=== PATIENT | male | born 1940 | race Caucasian/White ===

== ENCOUNTER 2019-07-03 13:11 | Inpatient (IN) | payer MEDICARE, BC ==
[2019-07-03 15:09] LABS: Glucose,Whole Blood 422 mg/dL (75-99)
[2019-07-03] MEDS ORDERED: HYDROcodone/APAP 5-325MG 1 EACH TAB PO PRN (16:34)
[2019-07-03] MEDS ORDERED: MELATONIN 3 MG TABLET PO PRN (16:34)
[2019-07-03] MEDS ORDERED: NALOXONE 0.4 MG/ML 1 ML VIAL IV PRN (16:34)
[2019-07-03] MEDS ORDERED: ONDANSETRON 4 MG/2 ML VIAL IVP PRN (16:34)
[2019-07-03] MEDS ORDERED: ACETAMINOPHEN TAB 325 MG TAB PO PRN (16:34)
[2019-07-03] MEDS ORDERED: ALBUTEROL INHALER 60 PUFF/8 GM INHALER (BULK) INHALATION PRN (16:36)
[2019-07-03 16:57] LABS: Glucose,Whole Blood 402 mg/dL (75-99)
[2019-07-03 17:13] LABS: Basophils % (A) 0 %; Eosinophils # (A) 0.3 k/uL (0-0.7); Eosinophils % (A) 2 %; HCT 43.1 % (39.0-53.0); HGB 14.2 gm/dL (13.0-17.5); Lymphocytes # (A) 1.5 k/uL (1.0-4.8); Lymphocytes % (A) 11 %; MCH 31.8 pg (25.0-35.0); MCHC 32.9 g/dL (31.0-37.0); MCV 96.8 fL (80.0-100.0); Mean Platelet Volume 9.8; Monocytes # (A) 0.5 k/uL (0-1.0); Monocytes % (A) 4 %; Neutrophils # (A) 11.7 k/uL (1.3-7.7); Neutrophils % (A) 83 %; Platelet Count 150 k/uL (150-450); RBC 4.45 m/uL (4.30-5.90); RDW 12.3 % (11.5-15.5); WBC 14.1 k/uL (3.8-10.6)
[2019-07-03] MEDS: SODIUM CHLORIDE 0.9% 1,000 ML IV SCH (17:20)
[2019-07-03] MEDS: INSULIN ASPART (NovoLOG) 100 UNIT/ML VIAL SQ SCH ×2 (17:20→20:53)
[2019-07-03 17:25] LABS: Albumin 3.3 g/dL (3.5-5.0); Calcium 9.2 mg/dL (8.4-10.2); Potassium 5.4 mmol/L (3.5-5.1); Total Bilirubin 0.7 mg/dL (0.2-1.3); Total Protein 6.1 g/dL (6.3-8.2)
[2019-07-03] MEDS ORDERED: ALBUTEROL HFA INHALER INHALATION PRN (18:27)
[2019-07-03 20:06] LABS: Glucose,Whole Blood 428 mg/dL (75-99)
[2019-07-03] MEDS: ATENOLOL 50 MG TAB PO SCH (20:52)
[2019-07-03] MEDS: TIMOLOL 0.5% OPHTH DROPS 5 ML BTL BOTH EYES SCH (20:53)
[2019-07-03] MEDS: LATANOPROST 0.005% OPHTH DROPS 2.5 ML BTL BOTH EYES SCH (20:53)
[2019-07-03] MEDS: VIT A,C & E-LUTEIN-MINERALS 1 EACH TAB PO SCH (20:53)
--- NOTE | 2019-07-03 23:01 | P.EN ---
i Was notified by RN to evaluate patient after falling in the bathroom and hitting the back of his head with the sink denies any focal neuro deficits no visible cuts or bruising or swelling on the back of his head no headache no nausea no vomiting denies any LOC denies any dizziness patient not on full anticoagulation plan fall precautions neuro checks
[2019-07-04] MEDS: HEPARIN SODIUM,PORCINE 5,000 UNIT/ML 1 ML VIAL SQ SCH ×4 (00:50→23:54)
[2019-07-04 02:34] LABS: Prolactin 2.9 ng/mL (2.1-17.7)
[2019-07-04 06:49] LABS: Glucose,Whole Blood 256 mg/dL (75-99)
[2019-07-04] MEDS: SODIUM CHLORIDE 0.9% 1,000 ML IV SCH ×4 (07:08→16:14)
[2019-07-04] MEDS: TIMOLOL 0.5% OPHTH DROPS 5 ML BTL BOTH EYES SCH ×2 (07:22→21:46)
[2019-07-04] MEDS: INSULIN ASPART (NovoLOG) 100 UNIT/ML VIAL SQ SCH ×4 (07:22→21:48)
--- NOTE | 2019-07-04 08:19 | XR ---
EXAMINATION TYPE: XR chest 1V portable DATE OF EXAM: 07/04/2019 COMPARISON: Outside CT thorax dated 07/02/2019 HISTORY: Pneumonia. TECHNIQUE: Single frontal view of the chest is obtained. FINDINGS: There is no focal air space opacity, pleural effusion, or pneumothorax seen. The subcenti meter right-sided pulmonary nodule seen on the prior CT are not well seen on x-ray and should be foll owed with CT in 12 months. The cardiac silhouette size is within normal limits. The osseous structu res are intact. IMPRESSION: No acute cardiopulmonary process on chest x-ray. The known pulmonary nodules are not well-defined on chest x-ray given their small size.
[2019-07-04] MEDS ORDERED: AZITHROMYCIN 500 MG in SODIUM CHLORIDE 0.9% 250 ML IVPB SCH (09:00)
[2019-07-04 09:19] LABS: Albumin 2.6 g/dL (3.5-5.0); Calcium 8.2 mg/dL (8.4-10.2); Total Bilirubin 0.4 mg/dL (0.2-1.3); Total Protein 5.1 g/dL (6.3-8.2)
[2019-07-04 09:20] LABS: Basophils % (A) 0 %; Eosinophils # (A) 0.4 k/uL (0-0.7); Eosinophils % (A) 3 %; HCT 39.6 % (39.0-53.0); HGB 12.7 gm/dL (13.0-17.5); Lymphocytes # (A) 1.9 k/uL (1.0-4.8); Lymphocytes % (A) 16 %; MCH 31.3 pg (25.0-35.0); MCHC 31.9 g/dL (31.0-37.0); MCV 98.1 fL (80.0-100.0); Mean Platelet Volume 9.4; Monocytes # (A) 0.4 k/uL (0-1.0); Monocytes % (A) 4 %; Neutrophils # (A) 9.4 k/uL (1.3-7.7); Neutrophils % (A) 77 %; Platelet Count 119 k/uL (150-450); RBC 4.04 m/uL (4.30-5.90); RDW 12.5 % (11.5-15.5); WBC 12.3 k/uL (3.8-10.6)
[2019-07-04 11:16] LABS: Glucose,Whole Blood 322 mg/dL (75-99)
[2019-07-04 15:27] VITALS: BMI 26.9
--- NOTE | 2019-07-04 15:36 | P.HPIM ---
History of Present Illness H&P Date: 07/03/19 Chief Complaint: inability to swallow Patient is a 78-year-old male with a past medical history of obese mellitus type II, hypertension, and dyslipidemia who initially presented to [facility] emergency department secondary to inability to swallow. He has been sick for approximately 3 weeks with a course of antibiotics and steroids due to severe bronchitis or pneumonia. This was given by his PCP. In the emergency department at [place] [address] he underwent extensive evaluation. His initial laboratory analysis showed a white blood cell count of 15.3, hemoglobin 12.6, platelets 141, lymphocyte 1.61, his glucometer read greater than 600 and blood draw showed glucose of 650. He was found to be significantly dehydrated with a BUN of 106, creatinine 2.76, sodium 138, potassium 3.9, chloride 106, carbon dioxide 20, anion gap 12, and calcium 8.1. He is on have an elevated lactic acid at 2.4, troponin negative. Influenza A and B were negative. He cad a COVID 19 swab. He underwent CTA of the chest He received a dose of doxycycline, Rocephin, and IV fluids. Pateint seen and examined at bedside. He reports that he has been sick for approximately 3 weeks. Initially he had a significant cough that was productive of sputum as well as postnasal drip and sinus congestion. He was advised primary care physician 3 times over the last 3 weeks. He received a course of steroids and antibiotics. Today he decided to present to the emergency dep artment if he stated he could not swallow due to his severe coughing. He denies any significant fevers at home. He does report recent thirst and increased urination. He also reports a 30 pound weight loss. He reports significant fatigue, muscle aches, and overall not feeling well. He reports that his blood sugars have been running extremely high. His blood sugars typically run 140s to 180s and his last hemoglobin A1c was near 7. He was recently started on Invega, by his primary care physician and had not benign blood sugar medications prior. He reports no other change in his medications. He denies any significant nausea, vomiting, or diarrhea. He reports lightheadedness and dizziness worse on standing. He has had a very poor appetite and reports loss of taste and smell that have not yet returned. Review of Systems Pertinent positives and negatives as discussed in HPI, a complete review of systems was performed and all other systems are negative. Past Medical History Past Medical History: Diabetes Mellitus, Hyperlipidemia, Hypertension History of Any Multi-Drug Resistant Organisms: None Reported Past Surgical History: Back Surgery Past Anesthesia/Blood Transfusion Reactions: No Reported Reaction Smoking Status: Former smoker Past Alcohol Use History: Daily Past Drug Use History: None Reported Additional History: Lives at home with no assistive devices - Past Family History Father Family Medical History: Congestive Heart Failure (CHF) Medications and Allergies Allergies Allergy/AdvReac Type Severity Reaction Status Date / Time No Known Allergies Allergy Verified 07/03/19 16:14 Physical Exam Osteopathic Statement: *. No significant issues noted on an osteopathic structural exam other than those noted in the History and Physical/Consult. Vitals: Vital Signs Temp Pulse Resp BP Pulse Ox 07/03/19 15:53 98.0 F 67 22 170/65 95 07/03/19 15:41 95 Intake and Output 07/03/19 07/03/19 07/03/19 06:59 14:59 22:59 Other: Weight 73.482 kg General: Ill appearing, no distress, appears at stated age, normal weight Derm: no unusual rashes/lesions no unusual ecchymoses, warm, dry Head: atraumatic, normocephalic, symmetric Eyes: EOMI, no lid lag, anicteric sclera, pupils equal round reactive to light ENT: Nose and ears atraumatic, no thrush, no pharyngeal erythema Neck: No thyromegaly, no cervical lymphadenopathy, trachea midline, supple Mouth: no lip lesion, gives membranes dry Cardiovascular: S1S2 reg, no murmur, positive posterior tibial pulse bilateral, no edema, capillary refill less than 2 seconds Lungs: Decreased breath sounds bilateral, no rhonchi, no rales , no accessory muscle use Abdominal: soft, nontender to palpation, no guarding, no appreciable organomegaly, normal bowel sounds Ext: no gross muscle atrophy, muscle strength 5 out of 5 in all 4 extremities grossly, no contractures, Neuro: CN II-XI grossly intact, light touch intact all 4 extremities, finger to nose within normal limits, Psych: Alert, oriented, appropriate affect Results Labs: Abnormal Lab Results - Last 24 Hours (Table) 07/03/19 Range/Units 15:07 POC Glucose (mg/dL) 422 H (75-99) mg/dL Comments: EKG is reviewed by myself reveals normal sinus rhythm at a rate of 63 with 1 PVC, QTC 425, no significant ST-T wave changes Chest x-ray: report reviewed Thrombosis Risk Factor Assmnt - DVT/VTE Prophylaxis DVT/VTE Prophylaxis: Pharmacologic Prophylaxis ordered - Choose All That Apply Each Risk Factor Represents 3 Points: Age 75 years or older Thrombosis Risk Factor Assessment Total Risk Factor Score: 3 Thrombosis Risk Factor Assessment Level: Moderate Risk Assessment and Plan Assessment: Bilateral pneumonia, community-acquired, failed outpatient treatment with sepsis -Low suspicion for Covid 19 with his elevated white blood cell count was appears more bacterial. Will check pro-calcitonin, LDH, CK. Covid 19 pending. Influenza nasal swab negative. -Follow chest x-ray until clear -Zithromax, Rocephin -Sputum culture, blood cultures pending - Recheck of lactic acid -Pulmonary hygiene -Albuterol inhaler Acute kidney injury -Avoid nephrotoxic agents -IV fluids -Repeat basic metabolic profile in a.m. -Monitor urine output Diabetes mellitus type 2 with significant hyperglycemia -Stat recheck a basic metabolic profile -Sliding scale insulin, check hemoglobin A1c -Follow blood sugars closely -Have been downtrending -Hold invokana Inabiltiy to swallow - swallow eval in AM Lactic acidosis -IV fluids -Follow until cleared HTN, controlled - hypotensive at [place] - Home atelolol - follow BP HLD - Statin The patient is admitted with an anticipated greater than 2 midnight stay for evaluation of Pneumonia with sepsis. Surrogate decision-maker: CODE STATUS: Ok with elective intubation if it is for short-term, does not want CPR, shock DVT prophylaxis: Heparin Discussed with: Patient, nursing, ED attemding from [facility] Anticipated discharge date: 3-[address]: home A total of 65 minutes was spent on the care of this complex patient more than 50% of the time was spent in counseling and care coordination.
--- NOTE | 2019-07-04 15:59 | P.PN ---
Subjective Progress Note Date: 07/04/19 Principal diagnosis: shortness of breath Patient is a 78-year-old male with a past medical history of obese mellitus type II, hypertension, and dyslipidemia who initially presented to [facility] emergency department secondary to inability to swallow. He has been sick for approximately 3 weeks with a course of antibiotics and steroids due to severe bronchitis or pneumonia. This was given by his PCP. In the emergency department at [place] he underwent extensive evaluation. His initial laboratory analysis showed a white blood cell count of 15.3, hemoglobin 12.6, platelets 141, lymphocyte 1.61, his glucometer reading was greater than 600 and blood draw showed glucose of 650. He was found to be significantly dehydrated with a BUN of 106, creatinine 2.76, sodium 138, potassium 3.9, chloride 106, carbon dioxide 20, anion gap 12, and calcium 8.1. He was found to have an elevated lactic acid at 2.4, troponin negative. Influenza A and B were neg ative. He had a COVID 19 swab. He underwent CTA of the chest. He received a dose of doxycycline, Rocephin, and IV fluids. By the morning after admission his glucose had greatly improved and his white blood cell count was continuing to improve. Renal function had also significantly improved. Patient seen and examined at bedside. He is feeling much better than yesterday, less body aches, his polydipsia is better, still having frequent urination. No nausea or vomiting. Still with low appetite. Overall feeling better. Cough is better today. Having more runny nose and stuffy nose. Objective - Vital Signs Vital signs: Vital Signs Temp 97.8 F 07/04/19 11:00 Pulse 84 07/04/19 11:00 Resp 18 07/04/19 11:00 BP 144/81 07/04/19 11:00 Pulse Ox 98 07/04/19 11:00 Intake & Output 07/03/19 07/04/19 07/04/19 18:59 06:59 18:59 Intake Total 1800 Output Total 200 250 Balance -200 1550 Weight 73.482 kg 73.482 kg Intake: Intake, IV Titration 1350 Amount Azithromycin 500 mg In 250 Sodium Chloride 0.9% 250 ml @ 250 mls/hr IVPB DAILY [facility] Rx#:[id number] Sodium Chloride 0.9% 1, 1050 000 ml @ 150 mls/hr IV . [id number] [facility] Rx#:[id number] cefTRIAXone 2 gm In 50 Sodium Chloride 0.9% 50 ml @ 100 mls/hr IVPB Q24HR [facility] Rx#:[id number] Oral 450 Output: Urine 200 250 Other: Voiding Method Urinal # Voids 1 1 - Exam General: [non toxic], [no distress], [appears at stated age] Derm: [warm], [dry] Head: [atraumatic], [normocephalic], [symmetric] Eyes: [EOMI], [no lid lag], [anicteric sclera] Mouth: [no lip lesion], [mucus membranes moist] Cardiovascular: [S1S2 reg], [no murmur], [positive posterior tibial pulse bilateral], Lungs: [CTA bilateral], [no rhonchi, no rales] , [no accessory muscle use] Abdominal: [soft], [ nontender to palpation], [no guarding], [no appreciable organomegaly] Ext: [no gross muscle atrophy], [no edema], [no contractures] Neuro: [ CN II-XI grossly intact], [no focal neuro deficits] Psych: [Alert], [oriented], [appropriate affect] - Labs CBC & Chem 7: 07/04/19 08:27 07/04/19 08:27 Labs: Abnormal Lab Results - Last 24 Hours (Table) 07/03/19 07/03/19 07/03/19 Range/Units 16:32 16:32 16:55 WBC 14.1 H (3.8-10.6) k/uL RBC (4.30-5.90) m/uL Hgb (13.0-17.5) gm/dL Plt Count (150-450) k/uL Neutrophils # 11.7 H (1.3-7.7) k/uL Potassium 5.4 H (3.5-5.1) mmol/L Chloride (98-107) mmol/L Carbon Dioxide (22-30) mmol/L BUN 88 H (9-20) mg/dL Creatinine 1.56 H (0.66-1.25) mg/dL Glucose 399 H (74-99) mg/dL POC Glucose (mg/dL) 402 H (75-99) mg/dL Calcium (8.4-10.2) mg/dL Creatine Kinase (55-170) U/L Total Protein 6.1 L (6.3-8.2) g/dL Albumin 3.3 L (3.5-5.0) g/dL 07/03/19 07/04/19 07/04/19 Range/Units 20:04 06:48 08:27 WBC 12.3 H (3.8-10.6) k/uL RBC 4.04 L (4.30-5.90) m/uL Hgb 12.7 L (13.0-17.5) gm/dL Plt Count 119 L (150-450) k/uL Neutrophils # 9.4 H (1.3-7.7) k/uL Potassium (3.5-5.1) mmol/L Chloride (98-107) mmol/L Carbon Dioxide (22-30) mmol/L BUN (9-20) mg/dL Creatinine (0.66-1.25) mg/dL Glucose (74-99) mg/dL POC Glucose (mg/dL) 428 H 256 H (75-99) mg/dL Calcium (8.4-10.2) mg/dL Creatine Kinase (55-170) U/L Total Protein (6.3-8.2) g/dL Albumin (3.5-5.0) g/dL 07/04/19 07/04/19 Range/Units 08:27 11:15 WBC (3.8-10.6) k/uL RBC (4.30-5.90) m/uL Hgb (13.0-17.5) gm/dL Plt Count (150-450) k/uL Neutrophils # (1.3-7.7) k/uL Potassium (3.5-5.1) mmol/L Chloride 110 H (98-107) mmol/L Carbon Dioxide 20 L (22-30) mmol/L BUN 61 H (9-20) mg/dL Creatinine 1.35 H (0.66-1.25) mg/dL Glucose 354 H (74-99) mg/dL POC Glucose (mg/dL) 322 H (75-99) mg/dL Calcium 8.2 L (8.4-10.2) mg/dL Creatine Kinase 34 L (55-170) U/L Total Protein 5.1 L (6.3-8.2) g/dL Albumin 2.6 L (3.5-5.0) g/dL Assessment and Plan Assessment: Bronchitis and sinusitis failed outpatient treatment with sepsis -Influenza A and B- -LDH normal, CK low, AST/ALT normal, no lymphopenia -Follow chest x-ray until clear -Zithromax, Rocephin -Sputum culture not collected, blood cultures pending - Recheck of lactic acid normal -Pulmonary hygiene -Albuterol inhaler Acute kidney injury -Avoid nephrotoxic agents -IV fluids decreased -Repeat basic metabolic profile in a.m. -Monitor urine output - lisinopril and HCTZ on hold Diabetes mellitus type 2 with significant hyperglycemia, improving -Sliding scale insulin, - check hemoglobin A1c pending -blood sugars closely -Hold invokana Thrombocytopenia - reactive - follow CBC Inabiltiy to swallow - resolved and clear buy speech HTN, controlled - hypotensive at [place] - Home atelolol - follow BP HLD - Statin Small pulm nodules - 12 month follow-up Lactic acidosis, resolved Pneumonia ruled out with negative chest x-ray DVT prophylaxis: Heparin Discussed with: Patient, nursing, ED Anticipated discharge date: 2-[address]: home A total of 25 minutes was spent on the care of this complex patient more than 50% of the time was spent in counseling and care coordination.
[2019-07-04 16:32] LABS: Glucose,Whole Blood 283 mg/dL (75-99)
[2019-07-04 19:42] LABS: Hemoglobin A1C 11.7 % (4.0-6.0)
[2019-07-04 20:57] LABS: Glucose,Whole Blood 457 mg/dL (75-99)
[2019-07-04] MEDS: ATENOLOL 50 MG TAB PO SCH (21:46)
[2019-07-04] MEDS: VIT A,C & E-LUTEIN-MINERALS 1 EACH TAB PO SCH (21:46)
[2019-07-04] MEDS: LATANOPROST 0.005% OPHTH DROPS 2.5 ML BTL BOTH EYES SCH (21:47)
[2019-07-04 22:15] LABS: Appearance,Urine Clear (Clear); Bilirubin,Urine Negative (Negative); Blood,Urine Negative (Negative); Color,Urine Light Yellow; Glucose,Urine (UA) 4+ (Negative); Ketones,Urine Negative (Negative); Leukocyte Esterase,Urine Negative (Negative); Nitrite,Urine Negative (Negative); Protein,Urine Negative (Negative); Specific Gravity,Urine 1.024 (1.001-1.035); Urobilinogen,Urine <2.0 mg/dL (<2.0)
[2019-07-05] MEDS: SODIUM CHLORIDE 0.9% 1,000 ML IV SCH (06:03)
[2019-07-05 06:52] LABS: Glucose,Whole Blood 191 mg/dL (75-99)
--- NOTE | 2019-07-05 07:29 | XR ---
EXAMINATION TYPE: XR chest 1V portable DATE OF EXAM: 07/05/2019 HISTORY: Shortness of breath. COMPARISON: July 04, 2019 TECHNIQUE: Single view of the chest is submitted. FINDINGS: Demonstrated are scattered senescent parenchymal change. There is no evidence for focal infiltrate. The heart is stable. Hilar and mediastinal structures are within normal limits. Degenerative changes are seen of the dorsal spine. IMPRESSION: 1. Chronic changes without evidence for acute pulmonary disease.
[2019-07-05] MEDS: INSULIN ASPART (NovoLOG) 100 UNIT/ML VIAL SQ SCH ×4 (07:37→20:30)
[2019-07-05] MEDS: HEPARIN SODIUM,PORCINE 5,000 UNIT/ML 1 ML VIAL SQ SCH ×2 (07:37→16:23)
[2019-07-05] MEDS: TIMOLOL 0.5% OPHTH DROPS 5 ML BTL BOTH EYES SCH ×2 (07:40→20:19)
[2019-07-05 08:38] LABS: Basophils % (A) 0 %; Eosinophils # (A) 0.4 k/uL (0-0.7); Eosinophils % (A) 3 %; HCT 40.9 % (39.0-53.0); HGB 13.3 gm/dL (13.0-17.5); Lymphocytes % (A) 18 %; MCH 31.6 pg (25.0-35.0); MCHC 32.6 g/dL (31.0-37.0); MCV 96.9 fL (80.0-100.0); Mean Platelet Volume 9.7; Monocytes # (A) 0.5 k/uL (0-1.0); Monocytes % (A) 4 %; Neutrophils # (A) 8.3 k/uL (1.3-7.7); Neutrophils % (A) 73 %; Platelet Count 112 k/uL (150-450); RBC 4.22 m/uL (4.30-5.90); RDW 12.4 % (11.5-15.5); WBC 11.4 k/uL (3.8-10.6)
[2019-07-05 08:50] LABS: Albumin 2.7 g/dL (3.5-5.0); Calcium 8.3 mg/dL (8.4-10.2); Potassium 4.6 mmol/L (3.5-5.1); Total Bilirubin 0.6 mg/dL (0.2-1.3); Total Protein 5.1 g/dL (6.3-8.2)
[2019-07-05] MEDS ORDERED: AZITHROMYCIN 500 MG TAB PO SCH (09:00)
[2019-07-05 11:35] LABS: Glucose,Whole Blood 345 mg/dL (75-99)
[2019-07-05 17:16] LABS: Glucose,Whole Blood 198 mg/dL (75-99)
[2019-07-05 20:03] LABS: Glucose,Whole Blood 402 mg/dL (75-99)
[2019-07-05] MEDS: INSULIN DETEMIR (LEVEMIR) 100 UNIT/ML SYR SQ SCH (20:14)
[2019-07-05] MEDS: ATENOLOL 50 MG TAB PO SCH (20:15)
--- NOTE | 2019-07-05 20:18 | P.PN ---
Subjective Progress Note Date: 07/05/19 Principal diagnosis: shortness of breath Patient is a 78-year-old male with a past medical history of obese mellitus type II, hypertension, and dyslipidemia who initially presented to [facility] emergency department secondary to inability to swallow. He has been sick for approximately 3 weeks with a course of antibiotics and steroids due to severe bronchitis or pneumonia. This was given by his PCP. In the emergency department at [place] he underwent extensive evaluation. His initial laboratory analysis showed a white blood cell count of 15.3, hemoglobin 12.6, platelets 141, lymphocyte 1.61, his glucometer reading was greater than 600 and blood draw showed glucose of 650. He was found to be significantly dehydrated with a BUN of 106, creatinine 2.76, sodium 138, potassium 3.9, chloride 106, carbon dioxide 20, anion gap 12, and calcium 8.1. He was found to have an elevated lactic acid at 2.4, troponin negative. Influenza A and B were neg ative. He had a COVID 19 swab. He underwent CTA of the chest. He received a dose of doxycycline, Rocephin, and IV fluids. By the morning after admission his glucose had greatly improved and his white blood cell count was continuing to improve. Renal function had also significantly improved. Ultimately his Covid 19 came back as negative. His A1c came back at 11.4. Repeat chest x-ray showed no acute process but scant pulmonary nodules with recommendations for follow-up in 12 months. Patient seen and examined at bedside. He is feeling much improved. Shortness of breath is getting better, cough is getting better. Still having nasal congestion. No chest pain. No n/v/diarrhea. Objective - Vital Signs Vital signs: Vital Signs Temp 98.1 F 07/05/19 16:28 Pulse 58 L 07/05/19 16:28 Resp 16 07/05/19 16:28 BP 134/64 07/05/19 16:28 Pulse Ox 97 07/05/19 16:28 Intake & Output 07/05/19 07/05/19 07/06/19 06:59 18:59 06:59 Intake Total 50 476 Output Total 200 Balance -150 476 Weight 73.482 kg Intake: Oral 50 476 Output: Urine 200 Other: Voiding Method Urinal # Voids 1 - Exam General: non toxic, no distress, appears at stated age Derm: warm, dry Head: atraumatic, normocephalic, symmetric Eyes: EOMI, no lid lag, anicteric sclera Mouth: no lip lesion, mucus membranes moist Cardiovascular: S1S2 reg, no murmur, positive posterior tibial pulse bilateral, Lungs: decreased be bilateral, no rhonchi, no rales , no accessory muscle use Abdominal: soft, nontender to palpation, no guarding, no appreciable organomegaly Ext: no gross muscle atrophy, no edema, no contractures Neuro: CN II-XI grossly intact, no focal neuro deficits Psych: Alert, oriented, appropriate affect - Labs CBC & Chem 7: 07/05/19 07:48 07/05/19 07:48 Labs: Abnormal Lab Results - Last 24 Hours (Table) 07/04/19 07/04/19 07/05/19 Range/Units 16:53 20:54 06:50 WBC (3.8-10.6) k/uL RBC (4.30-5.90) m/uL Plt Count (150-450) k/uL Neutrophils # (1.3-7.7) k/uL Chloride (98-107) mmol/L BUN (9-20) mg/dL Glucose (74-99) mg/dL POC Glucose (mg/dL) 457 H 191 H (75-99) mg/dL Calcium (8.4-10.2) mg/dL Lactate Dehydrogenase (313-618) U/L Creatine Kinase (55-170) U/L Total Protein (6.3-8.2) g/dL Albumin (3.5-5.0) g/dL Procalcitonin (0.02-0.09) ng/mL Urine Glucose (UA) 4+ H (Negative) 07/05/19 07/05/19 07/05/19 Range/Units 07:48 07:48 07:48 WBC 11.4 H (3.8-10.6) k/uL RBC 4.22 L (4.30-5.90) m/uL Plt Count 112 L (150-450) k/uL Neutrophils # 8.3 H (1.3-7.7) k/uL Chloride 111 H (98-107) mmol/L BUN 40 H (9-20) mg/dL Glucose 209 H (74-99) mg/dL POC Glucose (mg/dL) (75-99) mg/dL Calcium 8.3 L (8.4-10.2) mg/dL Lactate Dehydrogenase 626 H (313-618) U/L Creatine Kinase 29 L (55-170) U/L Total Protein 5.1 L (6.3-8.2) g/dL Albumin 2.7 L (3.5-5.0) g/dL Procalcitonin 0.10 H (0.02-0.09) ng/mL Urine Glucose (UA) (Negative) 07/05/19 07/05/19 07/05/19 Range/Units 11:34 17:14 19:47 WBC (3.8-10.6) k/uL RBC (4.30-5.90) m/uL Plt Count (150-450) k/uL Neutrophils # (1.3-7.7) k/uL Chloride (98-107) mmol/L BUN (9-20) mg/dL Glucose (74-99) mg/dL POC Glucose (mg/dL) 345 H 198 H 402 H (75-99) mg/dL Calcium (8.4-10.2) mg/dL Lactate Dehydrogenase (313-618) U/L Creatine Kinase (55-170) U/L Total Protein (6.3-8.2) g/dL Albumin (3.5-5.0) g/dL Procalcitonin (0.02-0.09) ng/mL Urine Glucose (UA) (Negative) Assessment and Plan Assessment: Bronchitis and sinusitis failed outpatient treatment with sepsis -Influenza A and B, COVID 19 negative -LDH normal, CK low, AST/ALT normal, no lymphopenia -Zithromax, Rocephin changed to augmentin -Sputum culture not collected, blood cultures pending - Recheck of lactic acid normal -Pulmonary hygiene -Albuterol inhaler Pulmonary nodules - repeat CT chest with PCP Diabetes mellitus type 2 with significant hyperglycemia, improving -Sliding scale insulin, start levemir, plan on d/c with long acting and metformin. - hemoglobin A1c 11.7 -blood sugars closely -Hold invokana Thrombocytopenia - reactive - follow CBC HTN, controlled - resume zestoretic - Home atelolol - follow BP HLD - Statin Small pulm nodules - 12 month follow-up Lactic acidosis, resolved Pneumonia ruled out with negative chest x-ray Acute kidney injury, resolved Inabiltiy to swallow, resolved DVT prophylaxis: Heparin Discussed with: Patient, nursing, Anticipated discharge date: 1-[address]: home A total of 25 minutes was spent on the care of this complex patient more than 50% of the time was spent in counseling and care coordination.
[2019-07-05] MEDS: LATANOPROST 0.005% OPHTH DROPS 2.5 ML BTL BOTH EYES SCH (20:19)
[2019-07-05] MEDS: AMOXIC-POT CLAV 875-125MG 1 EACH TAB PO SCH (21:36)
[2019-07-05] MEDS: VIT A,C & E-LUTEIN-MINERALS 1 EACH TAB PO SCH (21:38)
[2019-07-05 22:47] LABS: Glucose,Whole Blood 269 mg/dL (75-99)
[2019-07-06] MEDS: HEPARIN SODIUM,PORCINE 5,000 UNIT/ML 1 ML VIAL SQ SCH ×4 (00:09→20:29)
[2019-07-06 02:15] LABS: Glucose,Whole Blood 131 mg/dL (75-99)
[2019-07-06 07:11] LABS: Glucose,Whole Blood 121 mg/dL (75-99)
[2019-07-06] MEDS: INSULIN ASPART (NovoLOG) 100 UNIT/ML VIAL SQ SCH ×5 (07:14→20:23)
[2019-07-06 07:45] LABS: Calcium 8.1 mg/dL (8.4-10.2); Potassium 4.8 mmol/L (3.5-5.1)
[2019-07-06 08:08] LABS: HCT 37.6 % (39.0-53.0); HGB 12.4 gm/dL (13.0-17.5); MCH 31.9 pg (25.0-35.0); MCV 96.7 fL (80.0-100.0); RBC 3.89 m/uL (4.30-5.90); RDW 12.3 % (11.5-15.5); WBC 9.1 k/uL (3.8-10.6)
[2019-07-06] MEDS: LISINOPRIL-HCTZ 20-12.5 MG 1 EACH TAB PO SCH (08:33)
[2019-07-06] MEDS: AMOXIC-POT CLAV 875-125MG 1 EACH TAB PO SCH ×2 (08:33→20:25)
[2019-07-06] MEDS: metFORMIN 500 MG TAB PO SCH ×2 (08:33→17:43)
[2019-07-06] MEDS: TIMOLOL 0.5% OPHTH DROPS 5 ML BTL BOTH EYES SCH ×2 (08:34→20:27)
[2019-07-06 11:33] LABS: Glucose,Whole Blood 397 mg/dL (75-99)
[2019-07-06 11:42] LABS: Platelet Count 98 k/uL (150-450)
--- NOTE | 2019-07-06 14:25 | P.PN ---
Subjective Progress Note Date: 07/06/19 (delayed charting seen at 0830) Principal diagnosis: shortness of breath Patient is a 78-year-old male with a past medical history of obese mellitus type II, hypertension, and dyslipidemia who initially presented to [facility] emergency department secondary to inability to swallow. He has been sick for approximately 3 weeks with a course of antibiotics and steroids due to severe bronchitis or pneumonia. This was given by his PCP. In the emergency department at [place] he underwent extensive evaluation. His initial laboratory analysis showed a white blood cell count of 15.3, hemoglobin 12.6, platelets 141, lymphocyte 1.61, his glucometer reading was greater than 600 and blood draw showed glucose of 650. He was found to be significantly dehydrated with a BUN of 106, creatinine 2.76, sodium 138, potassium 3.9, chloride 106, carbon dioxide 20, anion gap 12, and calcium 8.1. He was found to have an elevated lactic acid at 2.4, troponin negative. Influenza A and B were negative. He had a COVID 19 swab. He underwent CTA of the chest. He received a dose of doxycycline, Rocephin, and IV fluids. By the morning after admission his glucose had greatly improved and his white blood cell count was continuing to improve. Renal function had also significantly improved. Ultimately his Covid 19 came back as negative. His A1c came back at 11.4. Repeat chest x-ray showed no acute process but scant pulmonary nodules with recommendations for follow-up in 12 months. His sugars were well controlled with a small amount of levemir. Patient seen and examined at bedside. Feeling weel, cough resolved, swallowing back to baseline, nervous about going home with insulin but feels that he can do this. No chest pain, no nuasea, no vomiting, no diarrhea. Objective - Vital Signs Vital signs: Vital Signs Temp 97.8 F 07/06/19 13:44 Pulse 67 07/06/19 13:44 Resp 16 07/06/19 13:44 BP 131/71 07/06/19 13:44 Pulse Ox 97 07/06/19 13:44 Intake & Output 07/05/19 07/06/19 07/06/19 18:59 06:59 18:59 Intake Total 476 700 540 Output Total 600 Balance 476 700 -60 Weight 73.482 kg Intake: Oral 476 700 540 Output: Urine 600 Other: Voiding Method Urinal # Voids 1 2 # Bowel Movements 1 - Exam General: non toxic, no distress, appears at stated age Derm: warm, dry Head: atraumatic, normocephalic, symmetric Eyes: EOMI, no lid lag, anicteric sclera Mouth: no lip lesion, mucus membranes moist Cardiovascular: S1S2 reg, no murmur, positive posterior tibial pulse bilateral, Lungs: decreased be bilateral, no rhonchi, no rales , no accessory muscle use Abdominal: soft, nontender to palpation, no guarding, no appreciable organomegaly Ext: no gross muscle atrophy, no edema, no contractures Psych: Alert, oriented, appropriate affect - Labs CBC & Chem 7: 07/06/19 06:48 07/06/19 06:48 Labs: Abnormal Lab Results - Last 24 Hours (Table) 07/05/19 07/05/19 07/05/19 Range/Units 07:48 17:14 19:47 RBC (4.30-5.90) m/uL Hgb (13.0-17.5) gm/dL Hct (39.0-53.0) % Plt Count (150-450) k/uL Chloride (98-107) mmol/L BUN (9-20) mg/dL Glucose (74-99) mg/dL POC Glucose (mg/dL) 198 H 402 H (75-99) mg/dL Calcium (8.4-10.2) mg/dL Procalcitonin 0.10 H (0.02-0.09) ng/mL 07/05/19 07/06/19 07/06/19 Range/Units 22:41 02:09 06:48 RBC 3.89 L (4.30-5.90) m/uL Hgb 12.4 L (13.0-17.5) gm/dL Hct 37.6 L (39.0-53.0) % Plt Count 98 L (150-450) k/uL Chloride (98-107) mmol/L BUN (9-20) mg/dL Glucose (74-99) mg/dL POC Glucose (mg/dL) 269 H 131 H (75-99) mg/dL Calcium (8.4-10.2) mg/dL Procalcitonin (0.02-0.09) ng/mL 07/06/19 07/06/19 07/06/19 Range/Units 06:48 07:09 11:30 RBC (4.30-5.90) m/uL Hgb (13.0-17.5) gm/dL Hct (39.0-53.0) % Plt Count (150-450) k/uL Chloride 110 H (98-107) mmol/L BUN 31 H (9-20) mg/dL Glucose 113 H (74-99) mg/dL POC Glucose (mg/dL) 121 H 397 H (75-99) mg/dL Calcium 8.1 L (8.4-10.2) mg/dL Procalcitonin (0.02-0.09) ng/mL Assessment and Plan Assessment: Bronchitis and sinusitis failed outpatient treatment with sepsis -Influenza A and B, COVID 19 negative -LDH normal, CK low, AST/ALT normal, no lymphopenia -Augmentinal -Pulmonary hygiene -Albuterol inhaler Pulmonary nodules - repeat CT chest with PCP Diabetes mellitus type 2 with significant hyperglycemia, improving -Sliding scale insulin, levemir and fixed dose, plan on d/c with long acting and metformin. - hemoglobin A1c 11.7 -blood sugars closely -Hold invokana Thrombocytopenia - reactive - follow CBC HTN, controlled - zestoretic - Home atelolol - follow BP HLD - Statin Small pulm nodules - 12 month follow-up Lactic acidosis, resolved Pneumonia ruled out with negative chest x-ray Acute kidney injury, resolved Inabiltiy to swallow, resolved D/w nursing need for insulin teaching DVT prophylaxis: Heparin Discussed with: Patient, nursing, Anticipated discharge date: in AM Anticipated discharge place: home A total of 25 minutes was spent on the care of this complex patient more than 50% of the time was spent in counseling and care coordination.
[2019-07-06 16:55] LABS: Glucose,Whole Blood 289 mg/dL (75-99)
[2019-07-06 19:49] LABS: Glucose,Whole Blood 304 mg/dL (75-99)
[2019-07-06] MEDS: INSULIN DETEMIR (LEVEMIR) 100 UNIT/ML SYR SQ SCH (20:26)
[2019-07-06] MEDS: ATENOLOL 50 MG TAB PO SCH (20:26)
[2019-07-06] MEDS: LATANOPROST 0.005% OPHTH DROPS 2.5 ML BTL BOTH EYES SCH (20:27)
[2019-07-06] MEDS: VIT A,C & E-LUTEIN-MINERALS 1 EACH TAB PO SCH (21:13)
[2019-07-06 22:14] VITALS: RESP 18
[2019-07-07 02:25] LABS: Glucose,Whole Blood 127 mg/dL (75-99)
[2019-07-07 05:51] VITALS: BP 111/67; PULSE 58; TEMP 97.5
[2019-07-07 07:10] LABS: Glucose,Whole Blood 139 mg/dL (75-99)
[2019-07-07] MEDS: metFORMIN 500 MG TAB PO SCH (07:48)
[2019-07-07] MEDS: INSULIN ASPART (NovoLOG) 100 UNIT/ML VIAL SQ SCH ×4 (07:48→12:32)
[2019-07-07] MEDS: HEPARIN SODIUM,PORCINE 5,000 UNIT/ML 1 ML VIAL SQ SCH (07:48)
[2019-07-07] MEDS: AMOXIC-POT CLAV 875-125MG 1 EACH TAB PO SCH (07:48)
[2019-07-07] MEDS: TIMOLOL 0.5% OPHTH DROPS 5 ML BTL BOTH EYES SCH (07:50)
[2019-07-07] MEDS: LISINOPRIL-HCTZ 20-12.5 MG 1 EACH TAB PO SCH (07:50)
[2019-07-07 08:16] LABS: HCT 36.1 % (39.0-53.0); HGB 11.8 gm/dL (13.0-17.5); MCH 31.5 pg (25.0-35.0); MCHC 32.6 g/dL (31.0-37.0); MCV 96.5 fL (80.0-100.0); Mean Platelet Volume 10.2; RBC 3.74 m/uL (4.30-5.90); RDW 12.5 % (11.5-15.5); WBC 8.7 k/uL (3.8-10.6)
[2019-07-07 08:24] LABS: Calcium 8.5 mg/dL (8.4-10.2); Platelet Count 89 k/uL (150-450); Potassium 4.7 mmol/L (3.5-5.1)
--- NOTE | 2019-07-07 10:20 | P.DS ---
Providers Date of admission: 07/03/19 14:59 Expected date of discharge: 07/07/19 Attending physician: Megan Shelton DO Primary care physician: Stated None Hospital Course: Discharge Diagnosis: Bronchitis with sepsis Pulmonary nodules Diabetes mellitus type 2 with significant hyperglycemia Thrombocytopenia HTN, controlled HLD Lactic acidosis Pneumonia Acute Kidney Injury Inability to Swallow Hospital Course: Patient is a 78-year-old male with a past medical history of diabetes mellitus type II, hypertension, and dyslipidemia who initially presented to [facility] emergency department secondary to inability to swallow. He has been sick for approximately 3 weeks with a course of antibiotics and steroids due to severe bronchitis or pneumonia. This was given by his PCP. In the emergency department at [place] he underwent extensive evaluation. His initial laboratory analysis showed a white blood cell count of 15.3, hemoglobin 12.6, platelets 141, lymphocyte 1.61, his glucometer reading was greater than 600 and blood draw showed glucose of 650. He was found to be significantly dehydrated with a BUN of 106, creatinine 2.76, sodium 138, potassium 3.9, chloride 106, carbon dioxide 20, anion gap 12, and calcium 8.1. He was found to have an elevated lactic acid at 2.4, troponin negative. Influenza A and B were negative. He had a COVID 19 swab. He underwent CTA of the chest. He received a dose of doxycycline, Rocephin, and IV fluids. By the morning after admission his glucose had greatly improved and his white blood cell count was continuing to improve. Renal function had also significantly improved. Ultimately his Covid 19 came back as negative. His A1c came back at 11.4. Repeat chest x-ray showed no acute process but scant pulmonary nodules with recommendations for follow-up in 12 months. His sugars were well controlled with a small amount of levemir. He was determined stable for discharge. I did do 40 minutes of each on how to use his insulin pen. Patient seen and examined at bedside. No chest pain, SOB nausea or vomiting. Vital signs reviewed and stable. General: non toxic, no distress, appears at stated age Derm: warm, dry Head: atraumatic, normocephalic, symmetric Eyes: EOMI, no lid lag, anicteric sclera Mouth: no lip lesion, mucus membranes moist Cardiovascular: S1S2 reg, no murmur, positive posterior tibial pulse bilateral, Lungs: CTA bilateral, no rhonchi, no rales , no accessory muscle use Abdominal: soft, nontender to palpation, no guarding, no appreciable organomegaly Neuro: CN II-XI grossly intact, no focal neuro deficits Psych: Alert, oriented, appropriate affect A total of 35 minutes of time were spent preparing this complex discharge summary . Patient Condition at Discharge: Stable Plan - Discharge Summary New Discharge Prescriptions: New Amoxic-Pot Clav 875-125Mg [Augmentin 875-125] 1 each PO Q12HR #6 tab [place], Insulin Disposable [Bd Ultra-Fine Pen Needle 4mm 32g] 1 each MC DAILY #1 box metFORMIN HCL [Glucophage] 500 mg PO BID-W/MEALS #60 tab Insulin Glargine,Hum.rec.anlog [Lantus Solostar] 12 unit SQ HS #1 box Continue Timolol [Betimol 0.5% Ophth Soln] 1 drop BOTH EYES BID Latanoprost/Pf [Latanoprost 0.005% Eye Drop] 1 drop BOTH EYES HS Atenolol [Tenormin] 50 mg PO HS Vit C/E/Zn/Coppr/Lutein/Zeaxan [Preservision Areds 2 Softgel] 1 cap PO HS Lisinopril-Hctz 20-12.5 mg [Zestoretic 20-12.5] 1 tab PO DAILY Discontinued Canagliflozin [Invokana] 300 mg PO DAILY Discharge Medication List Atenolol [Tenormin] 50 mg PO HS 07/03/19 [History] Latanoprost/Pf [Latanoprost 0.005% Eye Drop] 1 drop BOTH EYES HS 07/03/19 [History] Lisinopril-Hctz 20-12.5 mg [Zestoretic 20-12.5] 1 tab PO DAILY 07/03/19 [History] Timolol [Betimol 0.5% Ophth Soln] 1 drop BOTH EYES BID 07/03/19 [History] Vit C/E/Zn/Coppr/Lutein/Zeaxan [Preservision Areds 2 Softgel] 1 cap PO HS 07/03/19 [History] Amoxic-Pot Clav 875-125Mg [Augmentin 875-125] 1 each PO Q12HR #6 tab 07/07/19 [Rx] Insulin Glargine,Hum.rec.anlog [Lantus Solostar] 12 unit SQ HS #1 box 07/07/19 [Rx] [place], Insulin Disposable [Bd Ultra-Fine Pen Needle 4mm 32g] 1 each MC DAILY #1 box 07/07/19 [Rx] metFORMIN HCL [Glucophage] 500 mg PO BID-W/MEALS #60 tab 07/07/19 [Rx] Follow up Appointment(s)/Referral(s): Nonstaff,Physician [REFERRING] - 3 Days Patient Instructions/Handouts: Community Acquired Pneumonia (DC) Activity/Diet/Wound Care/Special Instructions: Activity: as tolerated Diet: carb consistent Special Instructions: Check blood sugar at 0130 and before breakfast, lunch, and dinner If 0130am blood sugar is less than 100 then eat a snack Repeat CT chest in 12 months for follow-up on pulmonary nodules Discharge Disposition: HOME SELF-CARE
[2019-07-07 11:45] LABS: Glucose,Whole Blood 256 mg/dL (75-99)
== END 2019-07-07 13:06 | disposition home or self-care (01) | DRG 871 ==
LOC: 4SSUR 14:59 → 6NMEDSUR 07-05 15:37
PROVIDERS: ADMIT Internal Medicine; ATTEND Internal Medicine
DX: A41.9 Sepsis, unspecified organism (principal); J18.9 Pneumonia, unspecified organism; E87.2 Acidosis; N17.9 Acute kidney failure, unspecified; D69.6 Thrombocytopenia, unspecified; E11.65 Type 2 diabetes mellitus with hyperglycemia; E78.5 Hyperlipidemia, unspecified; E86.0 Dehydration; Z20.828 Contact with and (suspected) exposure to other viral communicable diseases; I10 Essential (primary) hypertension; J40 Bronchitis, not specified as acute or chronic; Z82.49 Family history of ischemic heart disease and other diseases of the circulatory system; Z87.891 Personal history of nicotine dependence; R91.1 Solitary pulmonary nodule; W18.39XA Other fall on same level, initial encounter; Y93.9 Activity, unspecified; Y92.231 Patient bathroom in hospital as the place of occurrence of the external cause; R13.10 Dysphagia, unspecified; Z79.899 Other long term (current) drug therapy; Z79.4 Long term (current) use of insulin
CPT/HCPCS: 71045; 80048; 80053; 81003; 82550; 83036; 83605; 83615; 84145; 84146; 85025; 85027